=== PATIENT | female | born 1995 | race Caucasian/White ===

== ENCOUNTER 2025-01-06 11:57 | Outpatient (CLI) | payer OTHER, SELFPAY ==
--- NOTE | ~2025-01-06 | XR_ITS ---
Right Shoulder Technique: AP and scapular Y views were obtained. Clinical History: Pain Findings: No fracture or dislocation is seen. Osseous alignment is anatomic. The glenohumeral and acr omioclavicular joint spaces are preserved. Soft tissues are unremarkable. Impression: Unremarkable right shoulder radiographs. Reviewed, dictated and finalized at [facility] [place]. Impression: Unremarkable right shoulder radiographs.
--- NOTE | ~2025-01-06 | XR_ITS ---
Cervical Spine: AP, lateral, open-mouth views Clinical History: Pain Findings: There is straightening of the normal cervical lordosis. The vertebral bodies and posterior elements appear intact. No instability on flexion or extension. The intervertebral disc spaces are w ell maintained. Pre-vertebral soft tissues are unremarkable. Impression: Straightening of the normal cervical lordosis, otherwise unremarkable exam. Reviewed, dictated and finalized at location . Impression: Straightening of the normal cervical lordosis, otherwise unremarkable exam.
--- NOTE | ~2025-01-06 | XR_ITS ---
Left Shoulder Technique: AP and axillary views were obtained. Clinical History: Pain Findings: No fracture or dislocation is seen. Osseous alignment is anatomic. The glenohumeral and acr omioclavicular joint spaces are preserved. Soft tissues are unremarkable. Impression: Unremarkable left shoulder radiographs. Reviewed, dictated and finalized at [facility]. Impression: Unremarkable left shoulder radiographs.
--- OUTSIDE RECORDS SUMMARY | 2025-01-06 12:02 | XMS_ITS | Referral Summary ---
Author Organization [facility] Address [address] [place] [address] Care Team Providers Care Media Clerk Name Role Phone Edgar Walls MD Primary Care Provider [phone] Mary Thao MD Unavailable [phone] Allergies No known active allergies Medications cetirizine (ZyrTEC) 10 mg tablet Take 1 tablet (10 mg total) by mouth daily Active vit 59-zvxx-wxmuz-dha 27mg iron- 800 mcg-250 mg capsule Take 1 tablet by mouth daily Active oxyCODONE-acetami nophen (PERCOCET) 5-325 mg per tabletIndications :Pain Take 1 tablet by mouth every 4 (four) hours as needed for pain 5 tablet 1 Active Additional Information Patient not taking.Reported on 03/13/2024 zolpidem (AMBIEN) 5 mg tabletIndications :Sleep-Onset Insomnia Take 1 tablet (5 mg total) by mouth nightly as needed for sleep Active ARIPiprazole (ABILIFY) 5 mg tablet Take 1 tablet (5 mg total) by mouth daily Active FLUoxetine (PROzac) 20 mg tablet Take 1 tablet (20 mg total) by mouth daily Active norethindrone-e.e stradioL-iron (07/22, ,) 1 mg-20 mcg (21)/75 mg (7) per tabletIndications :Encounter for surveillance of contraceptive pills Take 1 tab daily 84 tablet 4 4 Active Active Problems Problem Noted Date Diagnosed Date 37 weeks gestation of 05/02/2021 Immunizations Immunization Administration Dates Next Due HPV9 03/13/2024 Influenza, Unspecified 04/10/2021 Pfizer SARS-CoV-2 Monovalent Vaccination (12+ Yrs) PURPLE 08/03/2020,07/08/2020 Tdap 04/01/2021 Social History Tobacco Use Types Packs/Day Years Used Date Smoking Tobacco: Never Smokeless Tobacco: Never Tobacco Cessation:Counseling Given: Not Answered AUDIT-C Answer Date Recorded Q1: How often do you have a drink containing alc ohol? 2-4 times a month 03/13/2024 Q2: How many drinks containi ng alcohol do you have on a typical day when you are drinking? 1 or 2 03/13/2024 Q3: How often do you have si x or more drinks on one occasion? Never 03/13/2024 Lemmon Depression Scale Answer Date Recorded [place] Depression Scale Total 2 05/04/2021 The thought of harming myself has occurred to me . Never 05/04/2021 Personal Safety Answer Date Recorded Have you ever been in or are you currently in a harmful physical or emotional relationship or is someone making you feel afraid or unsafe? Denies 04/21/2023 Comments No Sex and Gender Information Value Date Recorded Sex Assigned at Not on file Legal Sex Female 2:57 AM CDT Gender Identity Female 02/26/2021 10:18 AM CDT Sexual Orientation Straight 02/26/2021 10 :18 AM CDT Last Filed Vital Signs Vital Sign Reading Time Taken Comments Blood Pressure 108/68 03/13/2024 9:28 AM CDT Pulse 97 04/21/2023 3:52 PM CDT Temperature 36.2 C (97.1 F) 04/21/2023 1:29 PM CDT Respiratory Rate 18 04/21/2023 3:52 PM CDT Oxygen Saturation 100% 04/21/2023 3:52 PM CDT Inhaled Oxygen Concentration - - Weight 56.7 kg (125 lb) 03/13/2024 9:28 AM CDT Height 160 cm (5' 3) 03/13/2024 9:28 AM CDT Body Mass Index 22.14 03/13/2024 9:28 AM CDT Plan of Treatment Not on file Procedures Procedure Name Priority Date/Time Associated Diagnosis Comments HEPATITIS C ANTIBODY Routine 10/23/2020 11:00 AM CDT from Last 3 Months or Most Recently Relevant to Health Maintenance Results * Hepatitis C antibody (10/23/2020 11:00 AM CDT) Hep C Ab Nonreactive Nonreactive [facility] Comment: Interpretive Data Nonreactive: Antibodies to HCV not detected. Does NOT exclude the possibility of recent exposure to HCV. Equivocal: Equivocal for HCV antibodies. Supplemental molecular testing will be automatically performed to determine infection status in accordance with current CDC screening recommendations. Reactive: Positive for HCV antibodies. This may represent current or past HCV infection. Supplemental molecular testing will be automatically performed to determine current infection status in accordance with current CDC screening recommendations. Interpretive data was last revised on 2019. Blood specimen (specimen) 10/23/2020 11:00 AM CDT 10/23/2020 8:13 PM CDT Mary Thao MD LAB MICROBIOLOGY - GENERAL ORDERABLES Final Result [facility] [address] Department of Laboratories [place], [place] [id number] from Last 3 Months or Most Recently Relevant to Health Maintenance Insurance [facility] [employer] [address] OPTIONS P[facility] Address: [facility] [id number] [place] [address] [employer] [facility] [employer] Address: [address] [place] [address] [facility] OPTIONS PPO [facility] Address: [address] [address] [place] [address] [employer] [facility] [employer] Address: [address] [place] [address] [employer] [facility] [employer] Address: [facility] [id number] [place] [address] Advance Directives For more information, please contact: [phone] * Full Code (Latest Code Status on File) Date Activated Date Inactivated Comments 05/02/2021 3:48 PM 05/04/2021 8:34 PM Full CPR in case of cardiopulmonary arrest Care Teams Media Clerk Relationship Specialty Start Date End Date Edgar Walls MD [address] [place] [address] PCP - General 04/24/19 Mary Thao MD [address] [address] Consulting Physician Obstetrics and Gynecology 05/04/21
--- OUTSIDE RECORDS SUMMARY | 2025-01-06 12:02 | XMS_ITS | Clinical Summary ---
Author Organization [facility] Address [address] [place] [address] Care Team Providers Care Tank Farm Operator Name Role Phone Edgar Walls MD Primary Care Provider [phone] Mary Thao MD Unavailable [phone] Allergies No known active allergies Medications cetirizine (ZyrTEC) 10 mg tablet Take 1 tablet (10 mg total) by mouth daily Active vit 63-gnmp-qtudj-dha 27mg iron- 800 mcg-250 mg capsule Take [...] Vaccination (12+ Yrs) PURPLE 08/03/2020,07/08/2020 Tdap 04/01/2021 Medical History Medical History Date Comments Mental disorder medicated prior to Depression Anxiety Social History Tobacco Use Types Packs/Day Years [...] more drinks on one occasion? Never 03/13/2024 [place] Depression Scale Answer Date Recorded [place] Depression Scale Total 2 05/04/2021 The thought [...] Orientation Straight 02/26/2021 10 :18 AM CDT Obstetrics History Para Term AB IAB SAB Ectopic Multiple Livin g Live Births 1 1 1 0 1 1 Date Outcome GA Total Labor Labor/2nd/3rd Weight Sex Type Anes PTL Hillary A1 A5 Name Clin 2020 Term 37w 6d 2h 08m 2h 02m/0h 06m 2.85 kg (6 lb 4.5 oz) M Vag-S pont Epidur al N Livin g 9 9 KAYLEIGH FULLER Jennif er Ann, MD Complications:None Delivery Location:This Facil ity ([facility]) Last Filed Vital Signs Vital Sign Reading [...] 03/13/2024 9:28 AM CDT Plan of Treatment Health Maintenance Due Date Last Done Comments Cervical Cancer Screening 1996 Varicella Vaccines (1 of 2 - 13+ 2-dose series) 2009 Hepatitis B Screening 2014 Depression Screening 05/04/2022 05/04/2021 Covid-19 Vaccine (3 - 2023-2 5 season) 2024 08/03/2020, 07/08/2020 HPV Vaccines (2 - 3-dose SCD M series) 04/10/2024 03/13/2024 Influenza Vaccine (Season Ended) 2025 04/10/2021 Regular Well Visit/Exam 18-64 03/13/2025 03/13/2024 DTaP/Tdap/Td Vaccine (2 - Td or Tdap) 04/01/2031 04/01/2021 Hepatitis C Screening Completed 10/23/2020 Pneumococcal vaccine <65 Aged Out No longer eligible based on patient's age to complete this topic Procedures Procedure Name Priority Date/Time Associated Diagnosis Comments HEPATITIS C ANTIBODY Routine 10/23/2020 11:00 AM CDT from Last 3 Months or Most Recently Relevant to Health Maintenance Results * Hepatitis C antibody (10/23/2020 11:00 AM CDT) Hep C Ab Nonreactive Nonreactive [facility] Comment: Interpretive Data Nonreactive: Antibodies to HCV [...] 11:00 AM CDT 10/23/2020 8:13 PM CDT us Mary Thao MD LAB MICROBIOLOGY - GENERAL ORDERABLES Final Result [facility] [address] Department [place] [address] from Last 3 Months or Most Recently Relevant to Health Maintenance Insurance [employer] Address: [address] [place] [address] [facility] OPTIONS PPO [employer] Address: [address] [place] [address] [employer] Address: [address] [place] [address] Advance Directives For more information, please contact: [phone] * Full Code (Latest Code Status on File) Date Activated Date Inactivated Comments 05/02/2021 3:48 PM 05/04/2021 8:34 PM Full CPR in case of cardiopulmonary arrest Care Teams Tank Farm Operator Relationship Specialty Start Date End Date Edgar Walls MD [address] [place] [address] PCP - General 04/24/19 Mary Thao MD [address] [address] Consulting Physician Obstetrics and Gynecology 05/04/21
== END 2025-01-06 11:58 | disposition home or self-care (01) ==
PROVIDERS: PCP Family Medicine
DX: R29.3 Abnormal posture (principal); M25.511 Pain in right shoulder; M25.512 Pain in left shoulder; M54.2 Cervicalgia
CPT/HCPCS: 72050; 73030